=== PATIENT | male | born 2000 | race Caucasian/White ===

== ENCOUNTER 2025-09-14 09:03 | Emergency (ER) | payer OTHER ==
[~2025-09-14] VITALS: Ht 177.8 cm; Wt 94.0 kg
[2025-09-14 09:06] VITALS: BP 124/73; TEMP 98.1; O2SAT 98
[2025-09-14] MEDS ORDERED: OSEL75CA PO (10:52)
[2025-09-14] MEDS: OSELTAMIVIR PHOSPHATE 75 MG CAP PO ONE (11:01)
== END 2025-09-14 11:06 | disposition home or self-care (01) ==
LOC: M ED 09:03
DX: J09.X2 Influenza due to identified novel influenza A virus with other respiratory manifestations (principal)